=== PATIENT | male | born 1970 | race Caucasian/White ===

== ENCOUNTER 2016-09-02 01:18 | Emergency (ER) | payer MEDICAID ==
[~2016-09-02] VITALS: Ht 182.9 cm; Wt 83.9 kg
[~2016-09-02 01:18] MED LIST: HYDR-3326 PO
--- NOTE | 2016-09-02 01:30 | NUR ---
46 YO MALE BB SELF. PT IS ALERT X3, C/O EPIGASTRIC LIKE PAIN. PT AMBULATYED TO ER BED WITH STEADY GAIT, SKIN WARM AND DRY, RR EVEN AND UNLABORED. PT GOWNED, PLACED ON FLAP MAKER. AWAITING ORDERS FROM PROVIDER
--- NOTE | 2016-09-02 01:40 | NUR ---
18G RIGHT AC IV STARTED, BLOOD SAMPLE OBTAINED AND SENT TO LAB
[2016-09-02] MEDS ORDERED: MAG HYDROX/AL HYDROX/SIMETH 30 ML UDC ONE (01:45)
--- NOTE | 2016-09-02 01:55 | NUR ---
MEDICATED PT ORDERED
[2016-09-02] MEDS ORDERED: MAG HYDROX/AL HYDROX/SIMETH 30 ML UDC PO ONE (02:00)
[2016-09-02 02:15] LABS: BASOPHILS % (AUTO) 0.4 % (0.0-2.0); EOSINOPHILS # (AUTO) 0.3 /CMM (0.0-0.7); EOSINOPHILS % (AUTO) 3.3 % (0.0-6.0); HEMATOCRIT 42 % (39-51); HEMOGLOBIN 14.8 g/dL (13.5-17.5); LYMPHOCYTES # (AUTO) 3.7 /CMM (0.8-4.8); LYMPHOCYTES % (AUTO) 47.3 % (20.0-44.0); MEAN CORPUSCULAR HEMOGLOBIN 30 PG (26.0-33.0); MEAN CORPUSCULAR HGB CONC 35 g/dl (31.0-36.0); MEAN CORPUSCULAR VOLUME 86 fL (80-96); MONOCYTES # (AUTO) 0.5 /CMM (0.1-1.30); MONOCYTES % (AUTO) 6.6 % (2.0-12.0); NEUTROPHILS # (AUTO) 3.3 /CMM (1.8-8.9); NEUTROPHILS % (AUTO) 42.4 % (43.0-81.0); PLATELET COUNT (AUTO) 231 /CMM (150-450); RDW COEFFICIENT OF VARIATION 13.3 (11.5-15.0); RED BLOOD CELL COUNT(AUTO) 4.93 MIL/uL (4.5-6.0); WHITE BLOOD COUNT (AUTO) 7.8 K/uL (4.3-11.0)
[2016-09-02] MEDS ORDERED: MORPHINE SULFATE INJ 4 MG/ML DISP.SYRIN ONE (02:15)
[2016-09-02 02:19] LABS: APPEARANCE,URINE CLEAR (CLEAR); BILIRUBIN,URINE NEGATIVE (NEGATIVE); BLOOD, URINE NEGATIVE Ery/uL (NEGATIVE); COLOR,URINE YELLOW (YELLOW); KETONES,URINE NEGATIVE (NEGATIVE); LEUKOCYTE ESTERASE ,URINE NEGATIVE (NEGATIVE); NITRITE, URINE NEGATIVE (NEGATIVE); PROTEIN,URINE NEGATIVE (NEGATIVE); UGLUCOSE NEGATIVE (NEGATIVE); UROBILINOGEN,URINE 0.2 EU/dL (0.2)
[2016-09-02] MEDS ORDERED: MORPHINE SULFATE INJ 2 MG/ML DISP.SYRIN IV ONE (02:30)
[2016-09-02 02:32] LABS: CALCIUM, SERUM 8.7 mg/dL (8.5-10.1); CARBON DIOXIDE 25 mmol/L (21-32); CHLORIDE 104 mmol/L (98-107); GFR 80 mL/min (>60); GLUCOSE 121 mg/dL (74-106); POTASSIUM 3.7 mmol/L (3.5-5.1); SODIUM SERUM 139 mmol/L (136-145); UREA NITROGEN, BLOOD 19 mg/dL (7-18)
[2016-09-02 02:37] LABS: ALBUMIN 3.7 g/dL (3.4-5.0); ALKALINE PHOSPHATASE 89 U/L (46-116); BILIRUBIN,TOTAL 0.2 mg/dL (0.2-1.0); LIPASE 268 U/L (73-393)
[2016-09-02 02:38] LABS: TROPONIN I < 0.017 ng/mL (0.00-0.056)
[2016-09-02 02:51] LABS: ALANINE AMINOTRANSFERASE 56 U/L (12-78); ASPARTATE AMINOTRANSFERASE 27 U/L (15-37)
[2016-09-02] MEDS ORDERED: HYDROCODONE/APAP 5/325MG 1 EACH TABLET PO ONE (03:30)
[2016-09-02] MEDS ORDERED: HYDROCODONE/APAP 5/325MG 1 EACH TABLET ONE (03:36)
[2016-09-02 04:14] VITALS: BP 127/65
--- NOTE | 2016-09-02 04:15 | NUR ---
Patient discharged to home in stable condition. Written and verbal after care instructions given. Patient verbalizes understanding of instruction.IV removed. Catheter intact and site benign. Pressure and 4x4 applied to site. No bleeding noted. PT ambulatory with a steady gait VITAL SIGNS WITHIN NORMAL LIMITS.
== END 2016-09-02 04:15 | disposition home or self-care (01) ==
LOC: ER 01:22
DX: R10.84 Generalized abdominal pain (principal); F17.200 Nicotine dependence, unspecified, uncomplicated
CPT/HCPCS: 36415; 71010; 74000; 74176; 80048; 80076; 81001; 83605; 83690; 84484; 85025; 93005; 96374; 99285; A4606; J2270; Z7610; 81000-TC

== ENCOUNTER 2016-12-21 04:35 | Emergency (ER) | payer MEDICAID ==
[~2016-12-21] VITALS: Ht 182.9 cm; Wt 90.7 kg
--- NOTE | 2016-12-21 04:47 | NUR ---
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 TYLENOL 1GM TAKEN 2 HRS AGO, NO RELIEF. PT AOX3 RR EVEN AND UNLABORE.D NO SOB NOTED. NAD NOTED. NO NVD AT THIS TIME. PT TIME PT PLACED ON MONITOR WAITING FOF MD SILVER.
[2016-12-21] MEDS ORDERED: SUMATRIPTAN SUCCINATE 6 MG/0.5 ML VIAL SQ ONE ×2 (05:00→05:11)
[2016-12-21] MEDS ORDERED: METOCLOPRAMIDE HCL 10 MG/2 ML VIAL IV ONE (05:00)
[2016-12-21] MEDS ORDERED: IV NS 0.9% 1,000 ML BAG IV ONE (05:00)
[2016-12-21] MEDS ORDERED: METOCLOPRAMIDE HCL 10 MG/2 ML VIAL ONE (05:11)
--- NOTE | 2016-12-21 06:15 | NUR ---
IV removed. Catheter intact and site benign. Pressure and 4x4 applied to site. No bleeding noted.Patient discharged to home in stable condition. Written and verbal after care instructions given. Patient verbalizes understanding of instruction. ambulatory with a steady gait
[2016-12-21 06:40] VITALS: BP 130/70
== END 2016-12-21 06:51 | disposition home or self-care (01) ==
LOC: ER 04:36
DX: R51 Headache (principal); F17.200 Nicotine dependence, unspecified, uncomplicated; G43.909 Migraine, unspecified, not intractable, without status migrainosus
CPT/HCPCS: 96361; 96372; 96374; 99284; A4606; J2765; J3030; J7030; Z7610

== ENCOUNTER 2017-12-10 15:27 | Emergency (ER) | payer MEDICAID ==
[~2017-12-10] VITALS: Ht 185.4 cm; Wt 93.0 kg
[~2017-12-10 15:27] MED LIST changes: -HYDR-3326 PO; +HYDR-3974 PO
[2017-12-10 15:52] VITALS: BP 121/74
[2017-12-10] MEDS ORDERED: ACETAMINOPHEN 325 MG TABLET PO ONE (16:00)
[2017-12-10] MEDS ORDERED: ACETAMINOPHEN ES 500 MG TABLET ONE (16:11)
[2017-12-10] MEDS ORDERED: HYDROCODONE/APAP 5/325MG 1 EACH TABLET ONE (16:13)
[2017-12-10] MEDS ORDERED: HYDROCODONE/APAP 5/325MG 1 EACH TABLET PO ONE (16:30)
== END 2017-12-10 16:38 | disposition home or self-care (01) ==
LOC: ER 15:28
DX: H60.91 Unspecified otitis externa, right ear (principal); M25.562 Pain in left knee; F10.10 Alcohol abuse, uncomplicated; F17.200 Nicotine dependence, unspecified, uncomplicated; Y90.9 Presence of alcohol in blood, level not specified
CPT/HCPCS: 73564-TC; A4606; Z7610

== ENCOUNTER 2017-12-20 10:17 | Emergency (ER) | payer MEDICAID ==
[~2017-12-20] VITALS: Ht 185.4 cm; Wt 93.0 kg
[2017-12-20 10:17] VITALS: BP 109/65
[2017-12-20] MEDS ORDERED: KETOROLAC TROMETHAMINE INJ 30 MG/ML VIAL ONE (11:00)
[2017-12-20] MEDS ORDERED: CIPROFLOXACIN HCL 500 MG TABLET ONE (11:00)
[2017-12-20] MEDS ORDERED: KETOROLAC TROMETHAMINE INJ 60 MG/2 ML VIAL IM ONE (11:00)
[2017-12-20] MEDS ORDERED: CIPROFLOXACIN HCL 250 MG TABLET PO ONE (11:00)
== END 2017-12-20 11:08 | disposition home or self-care (01) ==
LOC: ER 10:24
DX: H60.8X1 Other otitis externa, right ear (principal); F17.200 Nicotine dependence, unspecified, uncomplicated
CPT/HCPCS: 96372; 99283; A4606; J1885; Z7610

== ENCOUNTER 2017-12-20 23:31 | Emergency (ER) | payer MEDICAID ==
[~2017-12-20] VITALS: Ht 182.9 cm; Wt 90.7 kg
[2017-12-20 23:31] VITALS: BP 149/87
[2017-12-20] MEDS ORDERED: MORPHINE SULFATE INJ 2 MG/ML DISP.SYRIN ONE (23:52)
[2017-12-20] MEDS ORDERED: MORPHINE SULFATE INJ 4 MG/ML DISP.SYRIN ONE (23:52)
[2017-12-20] MEDS ORDERED: DEXAMETHASONE SOD PHOSPHATE 4 MG/ML VIAL ONE (23:52)
[2017-12-21] MEDS ORDERED: DEXAMETHASONE SOD PHOSPHATE 4 MG/ML VIAL IM ONE
[2017-12-21] MEDS ORDERED: MORPHINE SULFATE INJ 2 MG/ML DISP.SYRIN IM ONE
--- NOTE | 2017-12-21 00:26 | NUR ---
Patient discharged to home in stable condition. Written and verbal after care instructions given. Patient verbalizes understanding of instruction. NO S/S OF DISTRESS UPON DISCHARGE. PT MADE AWARE TO NOT DRIVE AFTER BEING MEDICATED
== END 2017-12-21 00:27 | disposition home or self-care (01) ==
LOC: ER 23:32
DX: H60.8X1 Other otitis externa, right ear (principal); F17.200 Nicotine dependence, unspecified, uncomplicated
CPT/HCPCS: 96372 ×2; 99284; A4606; J1100; J2270 ×2; Z7610

== ENCOUNTER 2018-05-18 18:13 | Emergency (ER) | payer MEDICAID ==
[~2018-05-18] VITALS: Ht 185.4 cm; Wt 90.7 kg
[2018-05-18 18:35] VITALS: BP 114/70
[2018-05-18] MEDS ORDERED: HYDROCODONE/APAP 5/325MG 1 EACH TABLET PO ONE (19:00)
[2018-05-18] MEDS ORDERED: HYDROCODONE/APAP 5/325MG 1 EACH TABLET ONE (19:05)
== END 2018-05-18 19:48 | disposition home or self-care (01) ==
LOC: ER 18:13
DX: S30.0XXA Contusion of lower back and pelvis, initial encounter (principal); F10.10 Alcohol abuse, uncomplicated; F17.200 Nicotine dependence, unspecified, uncomplicated; Y90.9 Presence of alcohol in blood, level not specified; W01.0XXA Fall on same level from slipping, tripping and stumbling without subsequent striking against object, initial encounter; Y93.89 Activity, other specified; Y92.89 Other specified places as the place of occurrence of the external cause; Y99.8 Other external cause status
CPT/HCPCS: 72220-TC

== ENCOUNTER 2018-07-29 12:08 | Emergency (ER) | payer MEDICAID ==
[~2018-07-29] VITALS: Ht 185.4 cm; Wt 93.0 kg
[2018-07-29] MEDS: KETOROLAC TROMETHAMINE INJ 30 MG/ML VIAL IV ONE (13:00)
[2018-07-29] MEDS ORDERED: KETOROLAC TROMETHAMINE INJ 30 MG/ML VIAL ONE (13:00)
[2018-07-29 13:05] LABS: BASOPHILS % (AUTO) 0.6 % (0.0-2.0); HEMATOCRIT 45 % (39-51); HEMOGLOBIN 15.6 g/dL (13.5-17.5); LYMPHOCYTES # (AUTO) 2.3 /CMM (0.8-4.8); LYMPHOCYTES % (AUTO) 37.6 % (20.0-44.0); MEAN CORPUSCULAR HGB CONC 35 g/dl (31.0-36.0); MEAN CORPUSCULAR VOLUME 89 fL (80-96); MONOCYTES # (AUTO) 0.5 /CMM (0.1-1.30); MONOCYTES % (AUTO) 7.6 % (2.0-12.0); NEUTROPHILS # (AUTO) 3.2 /CMM (1.8-8.9); NEUTROPHILS % (AUTO) 52.2 % (43.0-81.0); PLATELET COUNT (AUTO) 210 /CMM (150-450); RED BLOOD CELL COUNT(AUTO) 5.03 MIL/uL (4.5-6.0)
[2018-07-29 13:12] LABS: CALCIUM, SERUM 9.5 mg/dL (8.5-10.1); CARBON DIOXIDE 28 mmol/L (21-32); CHLORIDE 106 mmol/L (98-107); CREATININE 0.9 mg/dL (0.6-1.3); GLUCOSE 93 mg/dL (74-106); POTASSIUM 4.1 mmol/L (3.5-5.1); SODIUM SERUM 140 mmol/L (136-145); UREA NITROGEN, BLOOD 12 mg/dL (7-18)
[2018-07-29 13:17] LABS: ALANINE AMINOTRANSFERASE 52 U/L (12-78); ALBUMIN 3.9 g/dL (3.4-5.0); ALKALINE PHOSPHATASE 70 U/L (46-116); ASPARTATE AMINOTRANSFERASE 18 U/L (15-37); BILIRUBIN,DIRECT 0.1 mg/dL (0.0-0.2); BILIRUBIN,TOTAL 0.3 mg/dL (0.2-1.0); LIPASE 262 U/L (73-393); TOTAL PROTEIN, SERUM 7.5 g/dL (6.4-8.2)
--- NOTE | 2018-07-29 14:00 | NUR ---
patient presented to the ER c/o abd pain on room air, breathing evenly and unlabored. connected to the monitor and pulse ox. kept comfortable. will continue to monitor accordingly.
--- NOTE | 2018-07-29 14:51 | NUR ---
GALLBLADDER START TIME 1418 END TIME 1431 ORDERED AT 1308 ON LUNCH BREAK [id number]. DUE TO RADIOLOGIST LEAVING TO [facility] HE WANTS TO DO STAT THORA IN ER BEFORE I DO STAT GALLBLADDER. FINISHED THORA AT [address] HORNE TO FINISH UP WITH PATIENT TO INFORM HER FLUID WAS LEFT IN PATIENTS ROOM IN CASE SHE WANTS TO SEND FLUID FOR DIAGNOSTIC AND ASKED HER TO KINDLY ORDER POST THORA STAT CHEST XRAY.
[2018-07-29 15:04] VITALS: BP 110/66
--- NOTE | 2018-07-29 15:06 | NUR ---
Patient discharged to home in stable condition. Written and verbal after care instructions given. Patient verbalizes understanding of instruction.IV removed. Catheter intact and site benign. Pressure and 4x4 applied to site. No bleeding noted.
== END 2018-07-29 15:05 | disposition home or self-care (01) ==
LOC: ER 12:11
DX: R10.11 Right upper quadrant pain (principal); F10.10 Alcohol abuse, uncomplicated; F17.200 Nicotine dependence, unspecified, uncomplicated; Y90.9 Presence of alcohol in blood, level not specified; Z90.89 Acquired absence of other organs
CPT/HCPCS: 36415; 71045; 76705; 80048; 80076; 83690; 84484; 85025; 93005; 96374; 99284; J1885

== ENCOUNTER 2019-03-04 17:34 | Inpatient (IN) | payer MEDICAID ==
[~2019-03-04] VITALS: Ht 185.4 cm; Wt 96.6 kg
--- NOTE | 2019-03-04 17:48 | NUR ---
CHEST PAIN SINCE LAST NIGHT ASSOCIATED WITH SHORTNESS OF BREATH,WORSENING SX. PATIENT A/OX4, BREATHING EVEN AND UNLABORED, NO DISTRESS NOTED, CHANGED INTO GOWN, ATTACHED TO THE RADIO ELECTRONICS TECHNICIAN. FAMILY AT BEDSIDE.
[2019-03-04] MEDS ORDERED: KETOROLAC TROMETHAMINE 15 MG/ML VIAL ONE (18:24)
[2019-03-04 18:26] LABS: BASOPHILS % (AUTO) 0.5 % (0.0-2.0); EOSINOPHILS % (AUTO) 0.4 % (0.0-6.0); HEMATOCRIT 42 % (39-51); HEMOGLOBIN 14.3 g/dL (13.5-17.5); LYMPHOCYTES # (AUTO) 2.1 /CMM (0.8-4.8); LYMPHOCYTES % (AUTO) 22.8 % (20.0-44.0); MEAN CORPUSCULAR HGB CONC 34 g/dl (31.0-36.0); MEAN CORPUSCULAR VOLUME 89 fL (80-96); MONOCYTES # (AUTO) 0.5 /CMM (0.1-1.30); MONOCYTES % (AUTO) 5.5 % (2.0-12.0); NEUTROPHILS # (AUTO) 6.5 /CMM (1.8-8.9); NEUTROPHILS % (AUTO) 70.8 % (43.0-81.0); PLATELET COUNT (AUTO) 211 /CMM (150-450); RED BLOOD CELL COUNT(AUTO) 4.71 MIL/uL (4.5-6.0); WHITE BLOOD COUNT (AUTO) 9.1 K/uL (4.3-11.0)
[2019-03-04] MEDS ORDERED: KETOROLAC TROMETHAMINE INJ 30 MG/ML VIAL IV ONE (18:30)
[2019-03-04] MEDS ORDERED: IV NS 0.9% 1,000 ML BAG IV ONE (18:30)
[2019-03-04 18:34] LABS: CALCIUM, SERUM 8.6 mg/dL (8.5-10.1); CARBON DIOXIDE 24 mmol/L (21-32); CHLORIDE 99 mmol/L (98-107); CREATININE 0.8 mg/dL (0.6-1.3); GLUCOSE 99 mg/dL (74-106); POTASSIUM 3.5 mmol/L (3.5-5.1); SODIUM SERUM 132 mmol/L (136-145); UREA NITROGEN, BLOOD 7 mg/dL (7-18)
[2019-03-04 18:40] LABS: ALANINE AMINOTRANSFERASE 40 U/L (12-78); ALBUMIN 3.9 g/dL (3.4-5.0); ALKALINE PHOSPHATASE 53 U/L (46-116); ASPARTATE AMINOTRANSFERASE 18 U/L (15-37); BILIRUBIN,DIRECT 0.1 mg/dL (0.0-0.2); BILIRUBIN,TOTAL 0.5 mg/dL (0.2-1.0); LIPASE 160 U/L (73-393); TOTAL PROTEIN, SERUM 7.1 g/dL (6.4-8.2)
[2019-03-04] MEDS ORDERED: MORPHINE SULFATE INJ 2 MG/ML DISP.SYRIN IV ONE (19:00)
--- NOTE | 2019-03-04 19:26 | NUR ---
PATIENT CAME BACK FROM CT. ENDORSED TO SAMIRA BROWN FOR SWETHA.
[2019-03-04 20:00] VITALS: BP 119/70
[2019-03-04] MEDS ORDERED: ASPIRIN 325 MG TABLET PO ONE (20:00)
--- NOTE | 2019-03-04 20:21 | NUR ---
CALLED HOUSE SUP FOR TELE BED
[2019-03-04] MEDS ORDERED: ASPIRIN 325 MG TABLET ONE (20:31)
[2019-03-04] MEDS ORDERED: ONDANSETRON HCL/PF 4 MG/2 ML VIAL IVP PRN (21:30)
[2019-03-04] MEDS ORDERED: MAGNESIUM HYDROXIDE 30 ML UDC PO PRN (21:30)
[2019-03-04] MEDS ORDERED: HYDROCODONE/APAP 5/325MG 1 EACH TABLET PO PRN (21:30)
[2019-03-04] MEDS ORDERED: MORPHINE SULFATE INJ 2 MG/ML DISP.SYRIN IV PRN (21:30)
[2019-03-04] MEDS ORDERED: MAG HYDROX/AL HYDROX/SIMETH 30 ML UDC PO PRN (21:30)
[2019-03-04] MEDS ORDERED: NITROGLYCERIN 0.4 MG/TAB BOTTLE SL PRN (21:30)
[2019-03-04] MEDS ORDERED: ACETAMINOPHEN 325 MG TABLET PO PRN (21:30)
[2019-03-04] MEDS ORDERED: ZOLPIDEM TARTRATE 5 MG TABLET PO PRN (21:30)
[2019-03-04 21:45] VITALS: BP 119/70
--- NOTE | 2019-03-04 21:48 | NUR ---
REPORT GIVEN TO STEPHANIE RESENDIZ FOR SWETHA. PT TO [phone]
--- NOTE | 2019-03-04 21:51 | NUR ---
PT TRANPSPORTED TO UNIT ON [facility] W/ RN AND EMT AT BEDSSIDE W/ ACLS PROTOCOL. NAD NOTED DURING TRANSPORT. PT AMBULATED FROM [facility] TO BED W/ ASSIST ON STEADY GAIT
[2019-03-04 22:00] VITALS: BP 119/70
[2019-03-04] MEDS ORDERED: SIMVASTATIN 20 MG TABLET PO SCH (22:00)
--- NOTE | 2019-03-04 22:00 | NUR ---
Receive pt via gurney from ER services, pt a/o x 4, respirations even and unlabored admit to telemetry SR 74 hr in tele monitor. afebrile, vs stable. denies chest pain at time per pt "feels better". no c/o of pain, no nausea and vomiting and diziness. safety measures at all times. will cont to mtr
[2019-03-05] MEDS: PANTOPRAZOLE 40 MG TABLET.DR PO SCH ×2 (01:06→08:30)
[2019-03-05 04:00] VITALS: BP 106/68
--- NOTE | 2019-03-05 06:41 | NUR ---
ASLEEP AND EASILY AWAKEN, NO S/S OF DISTRESS, ON CARDIAC MONITORING SR 81 IN TELE MONITOR. NO COMPLAIN OF CHEST PAIN AT THIS TIME. NURSING CARE RENDERED, KEPT CLEAN AND DRY AND COMFORTABLE. NEEDS ATTENDED AND ANTICIPATED. SAFETY MEASURES AT ALL TIMES. ENDORSE TO THE NEXT SHIFT.
[2019-03-05 07:06] LABS: BASOPHILS % (AUTO) 0.3 % (0.0-2.0); EOSINOPHILS % (AUTO) 2.8 % (0.0-6.0); HEMATOCRIT 41 % (39-51); HEMOGLOBIN 14.2 g/dL (13.5-17.5); LYMPHOCYTES # (AUTO) 2.6 /CMM (0.8-4.8); LYMPHOCYTES % (AUTO) 41.3 % (20.0-44.0); MEAN CORPUSCULAR HGB CONC 34 g/dl (31.0-36.0); MEAN CORPUSCULAR VOLUME 89 fL (80-96); MONOCYTES # (AUTO) 0.5 /CMM (0.1-1.30); MONOCYTES % (AUTO) 8.1 % (2.0-12.0); NEUTROPHILS % (AUTO) 47.5 % (43.0-81.0); PLATELET COUNT (AUTO) 190 /CMM (150-450); RED BLOOD CELL COUNT(AUTO) 4.65 MIL/uL (4.5-6.0); WHITE BLOOD COUNT (AUTO) 6.2 K/uL (4.3-11.0)
--- NOTE | 2019-03-05 07:20 | NUR ---
ISO COORDINATOR NOTES PATIENT RESTING, LYING IN BED. NO RESPIRATORY DISTRESS, NO C/O PAIN AT THIS TIME. SKIN WARM TO TOUCH. IV ACCESS SITE INTACT AND PATENT. PATIENT'S NEEDS ATTENDED. BED ON LOWEST LOCKED POSITION, CALL LIGHT WITHIN REACH. WILL CONTINUE TO MONITOR.
[2019-03-05 07:25] LABS: THYROID STIMULATING HORMONE 1.247 uIU/mL (0.358-3.74)
[2019-03-05 07:35] LABS: CALCIUM, SERUM 8.6 mg/dL (8.5-10.1); CREATININE 0.9 mg/dL (0.6-1.3); MAGNESIUM 1.8 mg/dL (1.8-2.4); PHOSPHORUS 3.8 mg/dL (2.5-4.9); POTASSIUM 3.5 mmol/L (3.5-5.1)
[2019-03-05 07:46] VITALS: BP 119/69
--- NOTE | 2019-03-05 08:59 | NUR ---
M/S RN NOTES PATIENT REFUSED TO SIGN THE CONSENT FOR CTA PROCEDURE THIS MORNING PER DR. DEBRA MD AWARE. PATIENT STATED "I NEED TO LEAVE BECAUSE NOBODY WILL BE THERE AT MY BUSINESS."
[2019-03-05] MEDS ORDERED: ASPIRIN EC 81 MG TABLET.DR PO SCH (09:00)
--- NOTE | 2019-03-05 09:10 | NUR ---
M/S RN NOTES PATIENT VERBALIZED THAT HE WANTS TO LEAVE AMA. NOTIFIED MD AND MD IS AWARE.
--- NOTE | 2019-03-05 09:55 | NUR ---
M/S RN NOTES EXPLAINED TO PATIENT RISKS AND BENEFITS OF PROCEDURE FOR CTA PER MD ORDER, PATIENT REFUSED AND WOULD LIKE TO LEAVE AMA. EXPLAINED TO PATENT WHAT AMA IS AND THE RISKS, VERBALIZED UNDERSTANDING. PATIENT SIGNED AMA FORM. PATIENT'S IV REMOVED AND APPLIED PRESSURE DRESSING. PATIENT LEFT WITH SON VIA PRIVATE CAR.
== END 2019-03-05 09:50 | disposition left against medical advice (07) | DRG 198 ==
LOC: ER 17:36 → TELE 21:22 → MED 03-05 08:44
PROVIDERS: ATTEND Nurse Practitioner Acute Care
DX: I25.10 Atherosclerotic heart disease of native coronary artery without angina pectoris (principal); E87.1 Hypo-osmolality and hyponatremia; E78.5 Hyperlipidemia, unspecified; F17.210 Nicotine dependence, cigarettes, uncomplicated
CPT/HCPCS: 36415; 71045-TC; 71250-TC; 80048-TC; 80061-TC; 80076-TC; 83690-TC; 83735-TC; 84100-TC; 84443-TC; 84484-TC; 85025-TC; 87081-TC; 93307-TC; G0378; J1885; J7030

== ENCOUNTER 2019-05-08 00:31 | Emergency (ER) | payer MEDICAID ==
[~2019-05-08] VITALS: Ht 185.4 cm; Wt 86.2 kg
[2019-05-08 01:07] VITALS: BP 126/73
--- NOTE | 2019-05-08 02:54 | NUR ---
CALLING RUDY RE: KNEE XRAY.
--- NOTE | 2019-05-08 03:17 | NUR ---
DR. PARKER SPEAKING TO PT REGARDING RESULTS.
[2019-05-08] MEDS ORDERED: HYDROCODONE/APAP 5/325MG 1 EACH TABLET PO ONE (03:30)
[2019-05-08] MEDS ORDERED: KETOROLAC TROMETHAMINE INJ 30 MG/ML VIAL IM ONE (03:30)
[2019-05-08] MEDS ORDERED: HYDROCODONE/APAP 5/325MG 1 EACH TABLET ONE (03:31)
[2019-05-08] MEDS ORDERED: KETOROLAC TROMETHAMINE 15 MG/ML VIAL ONE (03:31)
[2019-05-08] MEDS ORDERED: KETOROLAC TROMETHAMINE INJ 30 MG/ML VIAL ONE (03:36)
== END 2019-05-08 03:41 | disposition home or self-care (01) ==
LOC: ER 00:32
DX: S83.8X2A Sprain of other specified parts of left knee, initial encounter (principal); F10.10 Alcohol abuse, uncomplicated; F17.200 Nicotine dependence, unspecified, uncomplicated; W18.2XXA Fall in (into) shower or empty bathtub, initial encounter; Y93.89 Activity, other specified; Y92.89 Other specified places as the place of occurrence of the external cause; Y99.8 Other external cause status
CPT/HCPCS: 29505; 73564; 96372; 99283; J1885

== ENCOUNTER 2019-05-11 06:31 | Emergency (ER) | payer MEDICAID ==
[~2019-05-11] VITALS: Ht 182.9 cm; Wt 86.2 kg
--- NOTE | 2019-05-11 06:41 | NUR ---
BIBWIFE C/O FLU LIKE SYMPTOMS X2 DAYS. +FEVER, +COUGH, +BODY ACHES. received 600MG OF MOTRIN 2.5HR IT AUDITOR. HAS NOT RECEIVED FLU SHOT.
[2019-05-11] MEDS ORDERED: ACETAMINOPHEN ES 500 MG TABLET ONE (06:48)
[2019-05-11] MEDS ORDERED: ACETAMINOPHEN ES 500 MG TABLET PO ONE (07:00)
--- NOTE | 2019-05-11 07:39 | NUR ---
Patient discharged to home in stable condition. Rx and Written and verbal after care instructions given. Patient verbalizes understanding of instruction.
[2019-05-11 07:41] VITALS: BP 119/68
--- NOTE | 2019-05-11 09:35 | NUR ---
PATIENT NOTIFIED OF POSITIVE INFLUENZA RESULT.
== END 2019-05-11 07:41 | disposition home or self-care (01) ==
LOC: ER 06:33
DX: J10.1 Influenza due to other identified influenza virus with other respiratory manifestations (principal); F10.10 Alcohol abuse, uncomplicated; F17.200 Nicotine dependence, unspecified, uncomplicated; Y90.9 Presence of alcohol in blood, level not specified

== ENCOUNTER 2019-09-13 01:15 | Emergency (ER) | payer MEDICAID ==
[~2019-09-13] VITALS: Ht 182.9 cm; Wt 86.2 kg
--- NOTE | 2019-09-13 01:20 | NUR ---
PT CAME TO THE ED C/O MIDEPIGASTRIC ABDOMINAL PAIN FOR THE PAST 2 HOURS. +N/V. PT AA/OX4, RESPIRATIONS EVEN AND UNLABORED ON RA W/ NAD NOTED. PT CONNECTED TO THE COURTESY DRIVER AND POX
--- NOTE | 2019-09-13 01:25 | NUR ---
BLOOD COLLECTED AND SENT TO LAB
[2019-09-13] MEDS ORDERED: KETOROLAC TROMETHAMINE 15 MG/ML VIAL ONE ×2 (01:28→02:04)
[2019-09-13] MEDS ORDERED: IV NS 0.9% 1,000 ML BAG IV ONE (01:30)
[2019-09-13] MEDS ORDERED: KETOROLAC TROMETHAMINE INJ 30 MG/ML VIAL IV ONE ×2 (01:30→02:30)
[2019-09-13] MEDS ORDERED: ONDANSETRON HCL/PF 4 MG/2 ML VIAL IVP ONE (01:30)
[2019-09-13] MEDS ORDERED: LIDOCAINE VISCOUS 2% UD 15 ML UDC MM ONE (01:30)
[2019-09-13] MEDS ORDERED: MAG HYDROX/AL HYDROX/SIMETH 30 ML UDC PO ONE (01:30)
--- NOTE | 2019-09-13 01:30 | NUR ---
URINE COLLECTED AND SENT TO LAB
[2019-09-13] MEDS ORDERED: LIDOCAINE VISCOUS 2% UD 15 ML UDC ONE (01:36)
[2019-09-13 01:37] LABS: BASOPHILS # (AUTO) 0.1 /CMM (0.0-0.2); BASOPHILS % (AUTO) 1.1 % (0.0-2.0); EOSINOPHILS % (AUTO) 2.4 % (0.0-6.0); HEMATOCRIT 44 % (39-51); HEMOGLOBIN 15.3 g/dL (13.5-17.5); LYMPHOCYTES # (AUTO) 2.9 /CMM (0.8-4.8); LYMPHOCYTES % (AUTO) 34.7 % (20.0-44.0); MEAN CORPUSCULAR HGB CONC 35 g/dl (31.0-36.0); MEAN CORPUSCULAR VOLUME 90 fL (80-96); MONOCYTES # (AUTO) 0.7 /CMM (0.1-1.30); MONOCYTES % (AUTO) 8.6 % (2.0-12.0); NEUTROPHILS # (AUTO) 4.5 /CMM (1.8-8.9); NEUTROPHILS % (AUTO) 53.2 % (43.0-81.0); PLATELET COUNT (AUTO) 222 /CMM (150-450); RED BLOOD CELL COUNT(AUTO) 4.95 MIL/uL (4.5-6.0); WHITE BLOOD COUNT (AUTO) 8.5 K/uL (4.3-11.0)
[2019-09-13] MEDS ORDERED: ONDANSETRON HCL/PF 4 MG/2 ML VIAL ONE (01:37)
[2019-09-13] MEDS ORDERED: MAG HYDROX/AL HYDROX/SIMETH 30 ML UDC ONE (01:37)
[2019-09-13 01:47] LABS: CALCIUM, SERUM 9.4 mg/dL (8.5-10.1); CREATININE 1.1 mg/dL (0.6-1.3); POTASSIUM 3.8 mmol/L (3.5-5.1)
[2019-09-13 01:52] LABS: BILIRUBIN,DIRECT 0.1 mg/dL (0.0-0.2); BILIRUBIN,TOTAL 0.5 mg/dL (0.2-1.0); TOTAL PROTEIN, SERUM 7.7 g/dL (6.4-8.2)
--- NOTE | 2019-09-13 02:27 | NUR ---
ULTRASOUND IN PROGRESS AT BEDSIDE
[2019-09-13] MEDS ORDERED: FAMOTIDINE/PF INJ 20 MG/2 ML VIAL IV ONE ×2 (03:05→03:30)
[2019-09-13 03:35] VITALS: BP 123/84
== END 2019-09-13 03:36 | disposition home or self-care (01) ==
LOC: ER 01:15
DX: R10.13 Epigastric pain (principal); R11.2 Nausea with vomiting, unspecified
CPT/HCPCS: 36415; 71045; 76705; 80048; 80076; 83690; 85025; 93005; 96361; 96374; 96375; 96376; 99285; J1885 ×2; J2405; J3490

== ENCOUNTER 2019-12-28 03:10 | Emergency (ER) | payer MEDICAID ==
[~2019-12-28] VITALS: Ht 182.9 cm; Wt 81.6 kg
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
[2019-12-28] MEDS ORDERED: TDAP [DIPH/PERTUSSIS/TET] 0.5 ML VIAL IM ONE (03:41)
[2019-12-28] MEDS ORDERED: IBUPROFEN 600 MG TABLET PO ONE (03:46)
--- NOTE | 2019-12-28 03:51 | NUR ---
AT BEDSIDE FOR WOUND CARE. SUTURES.
[2019-12-28] MEDS: TDAP [DIPH/PERTUSSIS/TET] 0.5 ML VIAL IM ONE (03:52)
[2019-12-28] MEDS: IBUPROFEN 600 MG TABLET PO ONE (03:52)
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
--- NOTE | 2019-12-28 04:30 | NUR ---
Patient discharged to home in stable condition. Written and verbal after care instructions given. Patient verbalizes understanding of instruction. Told pt to come back in 48hrs for wound check and in 7-10 days for suture removal.
[2019-12-28 05:15] VITALS: BP 125/62
== END 2019-12-28 05:15 | disposition home or self-care (01) ==
LOC: ER 03:12
DX: S51.812A Laceration without foreign body of left forearm, initial encounter (principal); F17.200 Nicotine dependence, unspecified, uncomplicated; X58.XXXA Exposure to other specified factors, initial encounter; Y93.89 Activity, other specified; Y92.89 Other specified places as the place of occurrence of the external cause; Y99.8 Other external cause status
CPT/HCPCS: 12004; 99283; A6403; 90715

== ENCOUNTER 2019-12-29 23:22 | Emergency (ER) | payer MEDICAID ==
[~2019-12-29] VITALS: Ht 182.9 cm; Wt 81.6 kg
[2019-12-29 23:26] VITALS: BP 131/68
== END 2019-12-29 23:54 | disposition home or self-care (01) ==
LOC: ER 23:27
DX: S51.812D Laceration without foreign body of left forearm, subsequent encounter (principal); F17.200 Nicotine dependence, unspecified, uncomplicated; X58.XXXD Exposure to other specified factors, subsequent encounter

== ENCOUNTER 2020-01-02 14:54 | Emergency (ER) | payer MEDICAID ==
[~2020-01-02] VITALS: Ht 172.7 cm; Wt 81.6 kg
--- NOTE | 2020-01-02 14:57 | NUR ---
SEEN AND EXAMINED BY .
[2020-01-02 14:58] VITALS: BP 135/81
--- NOTE | 2020-01-02 15:03 | NUR ---
Patient discharged to home in stable condition. Written and verbal after care instructions given. Patient verbalizes understanding of instruction.
== END 2020-01-02 15:03 | disposition home or self-care (01) ==
LOC: ER 15:03
DX: S51.812D Laceration without foreign body of left forearm, subsequent encounter (principal); X58.XXXD Exposure to other specified factors, subsequent encounter

== ENCOUNTER 2020-01-06 21:32 | Emergency (ER) | payer MEDICAID ==
[~2020-01-06] VITALS: Ht 172.7 cm; Wt 81.6 kg
[2020-01-06 22:11] VITALS: BP 142/67
== END 2020-01-06 22:15 | disposition home or self-care (01) ==
LOC: ER 21:32
DX: S51.812D Laceration without foreign body of left forearm, subsequent encounter (principal); X58.XXXD Exposure to other specified factors, subsequent encounter

== ENCOUNTER 2020-04-20 12:14 | Emergency (ER) | payer MEDICAID ==
[~2020-04-20] VITALS: Ht 154.9 cm; Wt 80.3 kg
--- NOTE | 2020-04-20 12:25 | NUR ---
bib self + COVID ON 04/17/20 C/O SOB AND "PRESSURE" CHEST PAIN 12/19 R/T BACK. vs checked. ekg done.
[2020-04-20] MEDS ORDERED: LORAZEPAM 0.5 MG TABLET PO ONE (13:00)
[2020-04-20] MEDS ORDERED: LORAZEPAM 0.5 MG TABLET ONE (14:08)
[2020-04-20 14:33] LABS: BASOPHILS % (AUTO) 0.7 % (0.0-2.0); EOSINOPHILS % (AUTO) 0.9 % (0.0-6.0); HEMATOCRIT 43 % (39-51); HEMOGLOBIN 14.9 g/dL (13.5-17.5); LYMPHOCYTES # (AUTO) 1.9 /CMM (0.8-4.8); MEAN CORPUSCULAR HGB CONC 35 g/dl (31.0-36.0); MEAN CORPUSCULAR VOLUME 91 fL (80-96); MONOCYTES # (AUTO) 0.5 /CMM (0.1-1.30); NEUTROPHILS # (AUTO) 2.8 /CMM (1.8-8.9); NEUTROPHILS % (AUTO) 53.4 % (43.0-81.0); PLATELET COUNT (AUTO) 179 /CMM (150-450); RED BLOOD CELL COUNT(AUTO) 4.72 MIL/uL (4.5-6.0); WHITE BLOOD COUNT (AUTO) 5.2 K/uL (4.3-11.0)
[2020-04-20 14:42] LABS: CALCIUM, SERUM 9.3 mg/dL (8.5-10.1); CARBON DIOXIDE 28 mmol/L (21-32); CHLORIDE 101 mmol/L (98-107); GLUCOSE 93 mg/dL (74-106); POTASSIUM 3.9 mmol/L (3.5-5.1); SODIUM SERUM 139 mmol/L (136-145); UREA NITROGEN, BLOOD 10 mg/dL (7-18)
--- NOTE | 2020-04-20 15:25 | NUR ---
Patient discharged to home in stable condition. Written and verbal after care instructions given. Patient verbalizes understanding of instruction.
[2020-04-20 15:27] VITALS: BP 126/71
== END 2020-04-20 15:28 | disposition home or self-care (01) ==
LOC: ER 12:17
DX: R07.89 Other chest pain (principal)
CPT/HCPCS: 36415; 71045-TC; 80048-TC; 84484-TC; 85025-TC

== ENCOUNTER 2020-05-29 16:07 | Emergency (ER) | payer MEDICAID ==
[~2020-05-29] VITALS: Ht 172.7 cm; Wt 79.4 kg
[2020-05-29] MEDS ORDERED: KETOROLAC TROMETHAMINE INJ 60 MG/2 ML VIAL IM ONE (17:00)
[2020-05-29] MEDS ORDERED: KETOROLAC TROMETHAMINE INJ 30 MG/ML VIAL ONE (17:03)
[2020-05-29 17:24] LABS: BASOPHILS # (AUTO) 0.1 /CMM (0.0-0.2); BASOPHILS % (AUTO) 0.8 % (0.0-2.0); EOSINOPHILS % (AUTO) 2.2 % (0.0-6.0); HEMATOCRIT 43 % (39-51); HEMOGLOBIN 14.8 g/dL (13.5-17.5); LYMPHOCYTES # (AUTO) 2.6 /CMM (0.8-4.8); LYMPHOCYTES % (AUTO) 39.2 % (20.0-44.0); MEAN CORPUSCULAR HGB CONC 34 g/dl (31.0-36.0); MEAN CORPUSCULAR VOLUME 92 fL (80-96); MONOCYTES # (AUTO) 0.4 /CMM (0.1-1.30); MONOCYTES % (AUTO) 6.2 % (2.0-12.0); NEUTROPHILS # (AUTO) 3.4 /CMM (1.8-8.9); NEUTROPHILS % (AUTO) 51.6 % (43.0-81.0); PLATELET COUNT (AUTO) 227 /CMM (150-450); RED BLOOD CELL COUNT(AUTO) 4.69 MIL/uL (4.5-6.0); WHITE BLOOD COUNT (AUTO) 6.5 K/uL (4.3-11.0)
[2020-05-29 17:25] LABS: POTASSIUM 3.8 mmol/L (3.5-5.1)
[2020-05-29 17:28] LABS: BILIRUBIN,URINE Negative (NEGATIVE); COLOR,URINE YELLOW (YELLOW); LEUKOCYTE ESTERASE ,URINE Negative (NEGATIVE); NITRITE, URINE Negative (NEGATIVE); PH,URINE 7.5 (5.0-8.0); PROTEIN,URINE Negative (NEGATIVE); UGLUCOSE Negative (NEGATIVE); UROBILINOGEN,URINE 0.2 EU/dL (0.2)
[2020-05-29 17:31] LABS: ALBUMIN 3.8 g/dL (3.4-5.0); BILIRUBIN,DIRECT 0.1 mg/dL (0.0-0.2); BILIRUBIN,TOTAL 0.6 mg/dL (0.2-1.0); TOTAL PROTEIN, SERUM 7.3 g/dL (6.4-8.2)
[2020-05-29 17:50] VITALS: BP 129/90
--- NOTE | 2020-05-29 17:50 | NUR ---
PT. VERBALIZED UNDERSTANDING OF AFTERCARE INSTRUCTIONS.Patient discharged to home in stable condition. Written and verbal after care instructions given. Patient verbalizes understanding of instruction.
== END 2020-05-29 17:51 | disposition home or self-care (01) ==
LOC: ER 16:11
DX: R10.32 Left lower quadrant pain (principal); F17.200 Nicotine dependence, unspecified, uncomplicated
CPT/HCPCS: 36415; 74176; 80048; 80076; 81003; 83690; 85025; 96372; 99284; J1885

== ENCOUNTER 2021-06-07 00:25 | Emergency (ER) | payer MEDICAID ==
[~2021-06-07] VITALS: Ht 182.9 cm; Wt 77.1 kg
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
[2021-06-07 01:28] LABS: BASOPHILS % (AUTO) 0.5 % (0.0-2.0); EOSINOPHILS % (AUTO) 2.4 % (0.0-6.0); HEMATOCRIT 39 % (39-51); HEMOGLOBIN 13.6 g/dL (13.5-17.5); LYMPHOCYTES # (AUTO) 2.8 K/uL (0.8-4.8); MEAN CORPUSCULAR HGB CONC 35 g/dl (31.0-36.0); MEAN CORPUSCULAR VOLUME 89 fL (80-96); MONOCYTES # (AUTO) 0.5 K/uL (0.1-1.30); NEUTROPHILS # (AUTO) 2.5 K/uL (1.8-8.9); NEUTROPHILS % (AUTO) 41.1 % (43.0-81.0); PLATELET COUNT (AUTO) 214 K/uL (150-450)
[2021-06-07 01:40] LABS: CALCIUM, SERUM 8.9 mg/dL (8.5-10.1); POTASSIUM 3.7 mmol/L (3.5-5.1)
[2021-06-07 01:46] LABS: ALBUMIN 3.6 g/dL (3.4-5.0); BILIRUBIN,DIRECT 0.1 mg/dL (0.0-0.2); BILIRUBIN,TOTAL 0.3 mg/dL (0.2-1.0); TOTAL PROTEIN, SERUM 6.9 g/dL (6.4-8.2)
--- NOTE | 2021-06-07 01:57 | NUR ---
pt being transported to ct via [facility]
[2021-06-07] MEDS ORDERED: IV NS 0.9% 250 ML IV ONE (02:11)
[2021-06-07] MEDS ORDERED: CT SWABBABLE VALVE TRANS SET 1 EA INFUS.SET MC ONE (02:11)
[2021-06-07] MEDS ORDERED: IOHEXOL-300 100 ML VIAL IV ONE (02:11)
[2021-06-07] MEDS ORDERED: MORPHINE SULFATE INJ 2 MG/ML DISP.SYRIN ONE (02:14)
[2021-06-07] MEDS ORDERED: MORPHINE SULFATE INJ 2 MG/ML DISP.SYRIN IV ONE (02:30)
--- NOTE | 2021-06-07 03:06 | NUR ---
Patient discharged to home in stable condition. Written and verbal after care instructions given. Patient verbalizes understanding of instruction.IV line discontinued without incident.
[2021-06-07 03:11] VITALS: BP 117/70
== END 2021-06-07 03:10 | disposition home or self-care (01) ==
LOC: ER 00:26
DX: S29.012A Strain of muscle and tendon of back wall of thorax, initial encounter (principal); S39.012A Strain of muscle, fascia and tendon of lower back, initial encounter; R10.11 Right upper quadrant pain; K20.90 Esophagitis, unspecified without bleeding; F17.200 Nicotine dependence, unspecified, uncomplicated; V89.2XXA Person injured in unspecified motor-vehicle accident, traffic, initial encounter; Y93.89 Activity, other specified; Y92.89 Other specified places as the place of occurrence of the external cause; Y99.8 Other external cause status
CPT/HCPCS: 36415; 71045; 72074; 72110; 74177; 80048; 80076; 85025; 85730; 96374; 99285; J2270; J7050; Q9967

== ENCOUNTER 2021-08-18 17:11 | Inpatient (IN) | payer MEDICAID ==
[~2021-08-18] VITALS: Ht 185.4 cm; Wt 81.6 kg
[2021-08-18 18:09] LABS: BASOPHILS % (AUTO) 0.4 % (0.0-2.0); EOSINOPHILS % (AUTO) 2.1 % (0.0-6.0); HEMATOCRIT 43 % (39-51); HEMOGLOBIN 14.4 g/dL (13.5-17.5); LYMPHOCYTES # (AUTO) 2.1 K/uL (0.8-4.8); LYMPHOCYTES % (AUTO) 30.5 % (20.0-44.0); MEAN CORPUSCULAR HGB CONC 34 g/dl (31.0-36.0); MEAN CORPUSCULAR VOLUME 88 fL (80-96); MONOCYTES # (AUTO) 0.5 K/uL (0.1-1.30); MONOCYTES % (AUTO) 7.5 % (2.0-12.0); NEUTROPHILS % (AUTO) 59.5 % (43.0-81.0); PLATELET COUNT (AUTO) 228 K/uL (150-450); RED BLOOD CELL COUNT(AUTO) 4.85 MIL/uL (4.5-6.0); WHITE BLOOD COUNT (AUTO) 6.7 K/uL (4.3-11.0)
[2021-08-18 18:26] LABS: CALCIUM, SERUM 9.1 mg/dL (8.5-10.1); CARBON DIOXIDE 25 mmol/L (21-32); CHLORIDE 102 mmol/L (98-107); CREATININE 0.8 mg/dL (0.6-1.3); GLUCOSE 98 mg/dL (74-106); POTASSIUM 3.8 mmol/L (3.5-5.1); SODIUM SERUM 135 mmol/L (136-145); UREA NITROGEN, BLOOD 12 mg/dL (7-18)
[2021-08-18] MEDS ORDERED: ONDANSETRON HCL/PF - ER 4 MG/2 ML VIAL IV ONE (19:00)
[2021-08-18] MEDS ORDERED: MORPHINE SULFATE INJ 2 MG/ML DISP.SYRIN IV ONE (19:00)
--- NOTE | 2021-08-18 19:05 | NUR ---
RECIEVED REPORT FROM ROLA BROWN FOR SWETHA
--- NOTE | 2021-08-18 19:10 | NUR ---
PROVIDED PT WITH WATER AND WARM BLANKET, PT STATED CHEST PAIN 8/10 ON P/S, MD MADE AWARE
[2021-08-18] MEDS ORDERED: ONDANSETRON HCL/PF 4 MG/2 ML VIAL ONE (19:15)
[2021-08-18] MEDS ORDERED: MORPHINE SULFATE INJ 4 MG/ML DISP.SYRIN ONE (19:16)
--- NOTE | 2021-08-18 19:29 | NUR ---
IV LINE ESTABLISHED,RAC 18G
--- NOTE | 2021-08-18 19:29 | NUR ---
COVID ANTIGEN SWAB COLLECTED AND SENT TO LAB
[2021-08-18 19:38] VITALS: BP 131/77
[2021-08-18] MEDS ORDERED: Z GUARD REMEDY 4 OZ OINT TP PRN (21:30)
[2021-08-18] MEDS ORDERED: MAGNESIUM HYDROXIDE 30 ML UDC PO PRN (21:30)
[2021-08-18] MEDS ORDERED: ACETAMINOPHEN 325 MG TABLET PO PRN (21:30)
[2021-08-18] MEDS ORDERED: ASPIRIN EC 81 MG TABLET.DR PO ONE (21:30)
[2021-08-18] MEDS ORDERED: MAG HYDROX/AL HYDROX/SIMETH 30 ML UDC PO PRN (21:30)
[2021-08-18] MEDS ORDERED: MORPHINE SULFATE INJ 2 MG/ML DISP.SYRIN IV PRN (21:30)
[2021-08-18] MEDS ORDERED: ONDANSETRON HCL/PF 4 MG/2 ML VIAL IVP PRN (21:30)
[2021-08-18] MEDS ORDERED: ZOLPIDEM TARTRATE 5 MG TABLET PO PRN (21:30)
[2021-08-18] MEDS ORDERED: HYDROCODONE/APAP 5/325MG TABLET PO PRN (21:30)
--- NOTE | 2021-08-18 21:34 | NUR ---
PT STATES HE IS HAVING CHEST PAIN 7/10 ON P/S. MADE AWARE
[2021-08-18] MEDS ORDERED: HYDROCODONE/APAP 5/325MG TABLET ONE (21:40)
[2021-08-18] MEDS ORDERED: ATORVASTATIN 40 MG TABLET PO SCH (22:00)
[2021-08-18] MEDS ORDERED: ATORVASTATIN 40 MG TABLET ONE (23:37)
--- NOTE | 2021-08-19 02:28 | NUR ---
REPORT TO STEPHANIE LAZARO FOR SWETHA
--- NOTE | 2021-08-19 03:09 | NUR ---
PT TRANSPROTED TO UNIT ON [facility] WITH EMT AND RN AT BEDSIDE W/ ACLS PROTOCOL. NAD DURING TRANSPORT. PT AMBULATED FROM [facility] WOT BED W/ SBA
--- NOTE | 2021-08-19 03:15 | NUR ---
ACADEMIC ADVISOR ADMITTING NOTES ADMITTED PATIENT TO ROOM 317-2 FROM ER VIA GURNEY, AWAKE, ALERT ORIENTED X 4, AMBULATORY. BREATHING IS EVEN AND NONLABORED. NO SOB NOTED. THE NURSE AND FORM SETTER STE[employer] FORMS IS DOING THE ADMISSION PROCESS; WHILE TAKING THE PATIENT'S WEIGHT, PATIENT'S VERBALIZED HE WANTS TO GO, DOES NOT WANT TO STAY IN THE HOSPITAL AND REQUESTED TO LEAVE AGAINST MEDICAL ADVICE. "NO CHEST PAIN. I FELT BETTER PATIENT VERBALIZED". CHARGE NURSE AWARE AND EXPLAINED MEDICAL RISKS AND BENEFITS. NURSING PHARMACY AIDE AND ATTENDING DOCTOR NOTIFIED AND MADE AWARE. PATIENT SIGNED THE AMA FORM. PATIENT ESCORTED TO THE LOBBY.
[2021-08-19] MEDS ORDERED: PANTOPRAZOLE 40 MG TABLET.DR PO SCH (07:30)
[2021-08-19] MEDS ORDERED: METOPROLOL TARTRATE 25 MG TABLET PO SCH (09:00)
[2021-08-19] MEDS ORDERED: BENAZEPRIL HCL 10 MG TABLET PO SCH (09:00)
== END 2021-08-19 03:20 | disposition left against medical advice (07) | DRG 198 ==
LOC: ER 17:16 → TRANSITION 21:46 → TELE 08-19 02:09
PROVIDERS: ADMIT Hospitalist; ATTEND Hospitalist
DX: I25.10 Atherosclerotic heart disease of native coronary artery without angina pectoris (principal); E87.1 Hypo-osmolality and hyponatremia; F17.210 Nicotine dependence, cigarettes, uncomplicated; K21.9 Gastro-esophageal reflux disease without esophagitis; Z20.822 Contact with and (suspected) exposure to COVID-19; Z82.49 Family history of ischemic heart disease and other diseases of the circulatory system
CPT/HCPCS: 36415; 71045-TC; 80048-TC; 84484-TC; 85025-TC; C9803; G0378; J2270; J2405

== ENCOUNTER 2024-10-31 21:51 | Emergency (ER) | payer BC, MEDICAID ==
[~2024-10-31] VITALS: Ht 172.7 cm; Wt 83.9 kg
[2024-10-31 22:26] LABS: BASOPHILS # (AUTO) 0.1 K/uL (0.0-0.2); BASOPHILS % (AUTO) 0.9 % (0.0-2.0); EOSINOPHILS # (AUTO) 0.2 K/uL (0.0-0.7); EOSINOPHILS % (AUTO) 2.6 % (0.0-6.0); HEMATOCRIT 42 % (39-51); HEMOGLOBIN 14.2 g/dL (13.5-17.5); LYMPHOCYTES # (AUTO) 3.2 K/uL (0.8-4.8); MEAN CORPUSCULAR HEMOGLOBIN 30 PG (26.0-33.0); MEAN CORPUSCULAR HGB CONC 34 g/dl (31.0-36.0); MEAN CORPUSCULAR VOLUME 88 fL (80-96); MONOCYTES # (AUTO) 0.7 K/uL (0.1-1.30); MONOCYTES % (AUTO) 8.5 % (2.0-12.0); NEUTROPHILS # (AUTO) 4.3 K/uL (1.8-8.9); PLATELET COUNT (AUTO) 287 K/uL (150-450); RED BLOOD CELL COUNT(AUTO) 4.81 MIL/uL (4.5-6.0); RED CELL DISTRIBUTION WIDTH 12.9 % (11.5-15.0); WHITE BLOOD COUNT (AUTO) 8.5 K/uL (4.3-11.0)
[2024-10-31 22:45] LABS: CALCIUM, SERUM 9.4 mg/dL (8.5-10.1); CARBON DIOXIDE 27 mmol/L (21-32); CHLORIDE 98 mmol/L (98-107); GLUCOSE 120 mg/dL (74-106); POTASSIUM 3.7 mmol/L (3.5-5.1); SODIUM SERUM 136 mmol/L (136-145); UREA NITROGEN, BLOOD 10 mg/dL (7-18)
[2024-10-31 22:57] LABS: ALANINE AMINOTRANSFERASE 26 U/L (12-78); ALBUMIN 4.1 g/dL (3.4-5.0); ALKALINE PHOSPHATASE 58 U/L (46-116); ASPARTATE AMINOTRANSFERASE 12 U/L (15-37); BILIRUBIN,DIRECT 0.1 mg/dL (0.0-0.2); BILIRUBIN,TOTAL 0.5 mg/dL (0.2-1.0); NT-PRO BNP 35 pg/mL (0-125); TOTAL PROTEIN, SERUM 7.9 g/dL (6.4-8.2)
[2024-10-31] MEDS ORDERED: IOHEXOL-350 100 ML VIAL IV ONE (23:07)
[2024-10-31] MEDS ORDERED: IV NS 0.9% 250 ML IV ONE (23:07)
[2024-10-31] MEDS ORDERED: CT SWABBABLE VALVE TRANS SET 1 EA INFUS.SET MC ONE (23:07)
[2024-10-31] MEDS ORDERED: ACETAMINOPHEN ES 500 MG TABLET ONE (23:17)
[2024-10-31] MEDS: ACETAMINOPHEN ES 500 MG TABLET PO ONE (23:21)
[2024-11-01] MEDS ORDERED: SODIUM BICARBONATE SYR 50 MEQ/50 ML DISP.SYRIN ONE ×2 (00:33→00:35)
[2024-11-01 01:31] VITALS: BP 135/80; TEMP 98.2; O2SAT 98
== END 2024-11-01 01:32 | disposition left against medical advice (07) ==
LOC: ER 21:52
DX: R07.89 Other chest pain (principal); R10.13 Epigastric pain; F17.200 Nicotine dependence, unspecified, uncomplicated; R06.02 Shortness of breath
CPT/HCPCS: 99285; 71250; 71045; 93005; 85025; 80048; 83690; 80076; 36415 ×2; 84484 ×2; 83880; J7050; Q9967; J3490 ×2